=== PATIENT | female | born 1950 | race Caucasian/White ===

== ENCOUNTER → 2024-04-03 09:52 | Outpatient (REF) | payer MEDICARE, BC, SELFPAY | LOC: WDC 09:52 | PROVIDERS: ATTENDING PHYSICIAN Obstetrics & Gynecology Gynecology; FAMILY PHYSICIAN Family Medicine | DX: Z12.31 Encounter for screening mammogram for malignant neoplasm of breast (principal) | CPT/HCPCS: 77063; 77067 ==

== ENCOUNTER → 2025-01-25 09:42 | Outpatient (REF) | payer MEDICARE, BC, SELFPAY | LOC: HWRAD 09:42 | PROVIDERS: ATTENDING PHYSICIAN Family Medicine; REFERRING PHYSICIAN Obstetrics & Gynecology Gynecology | DX: Z13.820 Encounter for screening for osteoporosis (principal); E28.319 Asymptomatic premature menopause | CPT/HCPCS: 77080 ==

== ENCOUNTER → 2025-04-10 12:01 | Outpatient (REF) | payer MEDICARE, BC, SELFPAY | LOC: WDC 12:01 | PROVIDERS: ATTENDING PHYSICIAN Obstetrics & Gynecology Gynecology; FAMILY PHYSICIAN Family Medicine | DX: Z12.31 Encounter for screening mammogram for malignant neoplasm of breast (principal) | CPT/HCPCS: 77063; 77067 ==